=== PATIENT | male | born 1975 | race Caucasian/White ===

== ENCOUNTER 2023-12-30 13:37 | Emergency (ER) | payer BC ==
[~2023-12-30] VITALS: Ht 182.8 cm; Wt 104.3 kg
[~2023-12-30 13:37] MED LIST: CIPROFLOXACIN500 MG PO; DAYPRO600 M1 PO; LIPITOR40 MG PO; PYRIDIUM200 MG PO; ROBAXIN750 MG PO
[2023-12-30 15:53] LABS: BILIRUBIN Negative (Negative); BLOOD Trace-Lysed (Negative); CLARITY Clear (Clear); COLOR Yellow (Yellow); GLUCOSE Negative (Negative); KETONE Negative (Negative); LEUKO ESTERASE Negative (Negative); NITRITE Negative (Negative); PH 5.5 (4.5-8.0); UROBILINOGEN 0.2 E.U./dl (0.0-1.0)
[2023-12-30 16:19] LABS: WBC 0-2 wbc/hpf (0-5)
[2023-12-30] MEDS ORDERED: Ketorolac Tromethamine 30 MG/ML VIAL IM ONE (16:30)
[2023-12-30] MEDS ORDERED: Ondansetron Hydrochloride 4 MG TAB PO ONE (16:30)
[2023-12-30 16:47] LABS: HEMATOCRIT 43.4 % (42.0-52.0); MEAN CELL VOLUME 95.2 fl (80.0-94.0); MEAN CORPUSCULAR HGB 30.9 pg (27.0-31.0); MEAN CORPUSCULAR HGB CONC 32.5 g/dl (33.0-37.0); MEAN PLATELET VOLUME 11.7 fl (9.6-12.3); PLATELET COUNT AUTOMATED 131 10*3/uL (130-400); RED BLOOD COUNT 4.56 10*6/uL (4.50-5.90); RED CELL DISTRI WIDTH 12.6 % (0-14.5); WHITE BLOOD COUNT 9.5 10*3/uL (4.8-10.8)
[2023-12-30 17:06] LABS: MANUAL DIFF REFLEX YES
[2023-12-30 17:09] LABS: BURR CELLS FEW; PLATELET SUFFICIENCY LOW (NORMAL); POTASSIUM 3.8 mmol/L (3.4-5.1); TOTAL CELLS COUNTED 100 #CELLS; TOTAL PROTEIN 7.4 gm/dL (6.0-8.0)
== END 2023-12-30 22:47 | disposition home or self-care (01) ==
LOC: ED 13:37
PROVIDERS: Emergency Medicine; Nurse Practitioner
DX: N21.0 Calculus in bladder (principal); Z87.442 Personal history of urinary calculi; Z79.2 Long term (current) use of antibiotics; Z79.899 Other long term (current) drug therapy

== ENCOUNTER 2025-04-22 22:01 | Emergency (ER) | payer BC ==
[~2025-04-22] VITALS: Ht 182.8 cm; Wt 104.3 kg
[2025-04-22] MEDS ORDERED: Ondansetron Hydrochloride 4 MG/2 ML VIAL IV ONE (22:35)
[2025-04-22] MEDS ORDERED: SODIUM CHLORIDE 0.9% 1,000 ML IV ONE (22:35)
[2025-04-22 22:58] LABS: BASO # 0.1 10*3/uL (0.0-0.1); BASO % 1.3 % (0.0-1.0); EOS # 0.2 10*3/uL (0.0-0.4); EOS % 2.3 % (1.0-4.0); MEAN CELL VOLUME 92.2 fl (80.0-94.0); MEAN CORPUSCULAR HGB 31.1 pg (27.0-31.0); MEAN PLATELET VOLUME 11.0 fl (9.6-12.3); MONO # 0.9 10*3/uL (0.1-1.0); MONO % 9.8 % (3.0-9.0); NEUT # 5.4 10*3/uL (2.3-7.9); NEUT % 61.9 % (47.0-73.0); NUCLEATED RED BLOOD CELL 0.0 % (0.0-0.0); NUCLEATED RED BLOOD CELL 0.0 10*3/uL (0.0-0.0); PLATELET COUNT AUTOMATED 175 10*3/uL (130-400); RED CELL DISTRI WIDTH 12.4 % (0-14.5)
[2025-04-22 23:20] LABS: BUN 12 mg/dl (9-23)
[2025-04-23] MEDS ORDERED: FLOMAX0.4 MG PO (00:48)
[2025-04-23] MEDS ORDERED: SEPTDS PO (00:48)
[2025-04-23] MEDS ORDERED: KETOROLAC10 MG PO (00:48)
[2025-04-23] MEDS ORDERED: Ondansetron4 MG PO (00:54)
[2025-04-23] MEDS ORDERED: Ondansetron Hydrochloride 4 MG TAB PO ONE (00:55)
[2025-04-23] MEDS ORDERED: Sulfamethoxazole/Trimethopri 1 TAB TAB PO ONE (00:55)
[2025-04-23 01:15] LABS: BILIRUBIN Negative (Negative); BLOOD 2+ (Negative); CLARITY Clear (Clear); COLOR Yellow (Yellow); KETONE Trace (Negative); LEUKO ESTERASE Negative (Negative); NITRITE Negative (Negative); PH 8.0 (4.5-8.0); SPECIFIC GRAVITY 1.020 (1.001-1.030); UROBILINOGEN 1.0 E.U./dl (0.0-1.0)
[2025-04-23 01:36] LABS: RBC 16-20 rbc/hpf (0-2); WBC 0-2 wbc/hpf (0-5)
== END 2025-04-23 01:18 | disposition home or self-care (01) ==
LOC: ED 22:01
PROVIDERS: Nurse Practitioner Family
DX: N13.2 Hydronephrosis with renal and ureteral calculous obstruction (principal); E78.5 Hyperlipidemia, unspecified; R11.2 Nausea with vomiting, unspecified; R10.9 Unspecified abdominal pain; Z79.899 Other long term (current) drug therapy; Z87.442 Personal history of urinary calculi